=== PATIENT | female | born 1985 | race Caucasian/White ===

== ENCOUNTER 2021-12-05 16:40 | Emergency (ER) | payer OTHER | END 2021-12-05 18:20 | disposition other institution (70) | LOC: FER 16:40 | DX: S68.122A Partial traumatic metacarpophalangeal amputation of right middle finger, initial encounter (principal); S62.664A Nondisplaced fracture of distal phalanx of right ring finger, initial encounter for closed fracture; Z23 Encounter for immunization; Z20.822 Contact with and (suspected) exposure to COVID-19; X58.XXXA Exposure to other specified factors, initial encounter; Y92.89 Other specified places as the place of occurrence of the external cause; Y99.0 Civilian activity done for income or pay | CPT/HCPCS: 73130; 90471; 90715; U0002 ==